=== PATIENT | female | born 1980 ===

== ENCOUNTER 2016-06-15 16:20 | Outpatient (CLI) | payer OTHER | END 2016-06-15 21:45 | disposition home or self-care (01) | LOC: RAD 16:20 | DX: R76.11 Nonspecific reaction to tuberculin skin test without active tuberculosis (principal) ==

== ENCOUNTER 2022-11-07 14:00 | Outpatient (CLI) | payer OTHER | END 2022-11-07 19:22 | disposition home or self-care (01) | LOC: RAD 14:00 | PROVIDERS: ATTEND Nurse Practitioner Family | DX: E55.9 Vitamin D deficiency, unspecified (principal); E56.8 Deficiency of other vitamins; G56.01 Carpal tunnel syndrome, right upper limb; G90.09 Other idiopathic peripheral autonomic neuropathy; M06.4 Inflammatory polyarthropathy ==